=== PATIENT | female | born 1975 | race Caucasian/White ===

== ENCOUNTER 2019-07-08 13:17 | Emergency (ER) | payer OTHER, SELFPAY ==
[2019-07-08 13:23] VITALS: BP 163/90; PULSE 77; RESP 14; TEMP 36.8; O2SAT 98; BMI 40.5
--- NOTE | 2019-07-08 13:44 | ED.RN ---
URINE COLLECTED IN TRIAGE. COMPLETE UA AND CULTURE IN LAB. Evan BEJARANO RN [id number]
[2019-07-08] MEDS: Famotidine 20 MG Tablet 40 MG PO (14:22)
[2019-07-08] MEDS: predniSONE 20 MG Tablet 40 MG PO (14:22)
[2019-07-08] MEDS: DiphenhydrAMINE 25 MG Capsule 50 MG PO (14:22)
--- NOTE | 2019-07-08 15:33 | ED.DCSUM_ITS ---
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 She has never had this happen before. She had Cipro in the past that successfully treated a urine infection, so when she discussed a possible bladder infection with her doctor in the office a couple days ago, she was prescribed Cipro again. She has been having burning dysuria and frequency for about 1 week. No fevers, nausea, vomiting, low back pain. She denies any shortness of breath, tongue swelling, problems swallowing. No lightheadedness or near syncope. No hand or foot swelling, no rashes or itching. Prior similar symptoms: No - Past Medical History (1) HTN (hypertension) Status: Chronic Past Medical History - Allergies and Home Meds Allergies/Adverse Reactions: Allergies ciprofloxacin Allergy (Verified 07/08/19 14:13) Swelling lisinopril Allergy (Verified 07/08/19 14:13) Swelling Penicillins [PCN] Allergy (Verified 07/08/19 14:13) Hives Primary Care Physician: Rosina De La Vega MD [Primary Care Provider] - 3-5 Days Lives: With Family Smoking Status: Never smoker Drugs: None Review of Systems General: Denies: Chills, Fever, Sweats Eyes: Denies: Visual changes - bilaterally, Diplopia ENT: Reports: - - upper lip swelling. Denies: Rhinorrhea, Sore throat Cardiovascular: Denies: Chest pain, Palpitations Respiratory: Denies: Dyspnea, Cough, Dyspnea on exertion Gastrointestinal: Denies: Abdominal pain, Nausea, Vomiting, Diarrhea, Melena, Hematochezia Genitourinary: Reports: Dysuria, Frequency. Denies: Hematuria Musculoskeletal: Denies: Neck pain, Back pain, Extremity Pain Skin: Denies: Rash, Wounds Neurological: Denies: Headache, Weakness, Numbness Physical Exam Vital Signs/Narrative: Vital Signs Temp Pulse Resp BP Pulse Ox 07/08/19 13:23 98.2 F 77 14 163/90 H 98 Inital Vital Signs reviewed: Yes General: Well nourished, Well developed, No Acute Distress Head: Normocephalic, Atraumatic Eyes: Perrl, EOMI ENT: Moist mucous membranes, No rhinorrhea, - - Extremely edematous, nontender upper lip. No trismus. No stridor. Posterior oropharynx is normal-appearing and symmetric without any evidence of edema there or at the tongue. No sublingual edema. Neck: Supple, Nontender, No lymphadenopathy Cardiovascular: Regular rate, Regular rhythm, No murmurs Respiratory: No distress, CTA bilaterally, Chest nontender Back: Nontender, Normal Inspection Extremities: Nontender, No edema Skin: Normal color, No rash, No Trauma Neurological: Alert, Oriented x3, Cranial nerves II-XII grossly intact, Normal Strength, Normal Sensation Psychological: Normal affect, Normal Mood Diagnostic/Tx/Re-eval - Medical Decision Making Patient was given Benadryl, Pepcid, prednisone. She was observed in ER for 3 hours. On reexamination, her right upper lip angioedema is stable and has not worsened. She has no stridor, trouble breathing, trouble swallowing, or any other new symptoms, the exam is the same as when I saw her before. Given that she is not progressing or getting worse, I feel she is stable for discharge home. We discussed reasons to return to the ER. She is comfortable with that. In adjusting her medications -- I recommend discontinuing the ciprofloxacin in addition to her lisinopril, I think the Cipro is more likely the cause, however the involvement of her upper lip only and to such a significant degree I think also requires discontinuation of her SHEILA inhibitor. The plan is to replace these with losartan 25mg daily and a 3-day course of Bactrim and have her fo llow-up as an outpatient. Attempted to discussed with Dr. Jackson, covering for Dr. De La Vega today, mainly to ensure close outpt follow-up and verify appropriate dosing of ARB, but after 30 min we did not receive a call back and the patient wanted to leave. ED Disposition - Plan for ED Patient: Disposition: Home or Assisted Living Diagnosis: Angioedema of lips Instructions: ALLERGIC REACTION, Drug, ED Angioedema Prescriptions: Sulfamethoxazole/Trimethoprim [Bactrim Ds Tablet] 1 ea PO BID #6 tab Prescription Printed Losartan Potassium 25 mg PO DAILY #30 tab Prescription Printed predniSONE tablet 40 mg PO DAILY #6 tab Prescription Printed Referrals: Rosina De La Vega MD [Primary Care Provider] - 3-5 Days Additional Instructions: STOP your lisinopril and the ciprofloxacin.
[2019-07-08 16:30] VITALS: BP 135/82; PULSE 80; RESP 16; O2SAT 99
--- NOTE | 2019-07-08 16:30 | ED.RN ---
DISCHARGE INSTRUCTIONS GIVEN TO AND REVIEWED WITH PATIENT, PATIENT DENIES QUESTIONS OR CONCERNS AND VOICES UNDERSTANDING OF DISCHARGE INSTRUCTIONS. PT AMBULATES OUT OF ROOM WITHOUT DIFFICULTY.
== END 2019-07-08 16:31 | disposition home or self-care (01) ==
PROVIDERS: Emergency Provider Emergency Medicine; Family Provider Internal Medicine; PCP Internal Medicine
DX: T78.3XXA Angioneurotic edema, initial encounter (principal); N39.0 Urinary tract infection, site not specified; I10 Essential (primary) hypertension; Z79.899 Other long term (current) drug therapy; Z88.0 Allergy status to penicillin; Z88.8 Allergy status to other drugs, medicaments and biological substances
CPT/HCPCS: 99283

== ENCOUNTER 2020-12-20 13:02 | Emergency (ER) | payer OTHER, SELFPAY ==
[2020-12-20 13:03] VITALS: BP 172/106; PULSE 79; RESP 16; TEMP 35.9; O2SAT 98; BMI 40.3
--- NOTE | 2020-12-20 13:10 | RAD_ITS ---
STUDY: X-RAY - LEFT FOOT CLINICAL: Female, 45 years old. FELL YESTERDAY, PAIN AND SWELLING LATERAL FOOT TECHNIQUE: 3 view(s) of the foot. COMPARISON: None. FINDINGS: Normal talus, calcaneus, and tarsal bones. Normal visualized subtalar, talonavicular, calcaneocuboid, tarsal and tarsometatarsal articulations. Normal metatarsi. Normal metatarsophalangeal joint of the great toe. Normal tibial and fibular sesamoid bones. Normal interphalangeal joint of the great toe. Normal phalanges of the great toe. Normal second through fifth metatarsophalangeal joints. Normal interphalangeal joints and phalanges of the lesser toes. The soft tissue structures are unremarkable. RAD/Foot min 3 Views IMPRESSION: Normal x-ray examination of the foot. Electronically Signed: Сергей Acevedo MD at 14:32 EST , Service support ,
--- NOTE | 2020-12-20 13:11 | ED.VIS.GEN ---
History of Present Illness Chief Complaint: Lower Extremity Injury Informant: Patient Onset: Yesterday Context: Sudden Onset Timing: Continuous Quality: Pain lateral left foot Location: Over the fourth fifth metatarsal proximally Current Severity: Mild Maximum Severity: Moderate Worsened by: Walking Relieved by: Elevation Associated Symptoms: None Narrative: Is a 45-year-old woman who presents with injury to her left foot. She localized the pain lateral side of the left foot over the fourth fifth metatarsal. There is soft tissue swelling noted. She denies any other injury. Prior similar symptoms: No Recent Illness/Hospitalization: No - Past Medical History (1) HTN (hypertension) Status: Chronic Past Medical History - Allergies and Home Meds Allergies/Adverse Reactions: Allergies ciprofloxacin Allergy (Verified 12/20/20 13:02) Swelling lisinopril Allergy (Verified 12/20/20 13:02) Swelling Penicillins [PCN] Allergy (Verified 12/20/20 13:02) Hives Primary Care Physician: Rosina De La Vega MD [Primary Care Provider] - Prior records reviewed: Yes Surgical History: noncontributory Lives: Spouse/ Significant Other Smoking Status: Never smoker Drugs: None Review of Systems General: Denies: Chills, Fever, Malaise, Subjective Gastrointestinal: Denies: Nausea, Vomiting Musculoskeletal: Reports: Swelling, Extremity Pain. Denies: Myalgias, Arthralgias, Neck pain, Back pain Neurological: Denies: Weakness, Parasthesia, Numbness Hematologic: Denies: Easy bruising, Easy bleeding Physical Exam Vital Signs/Narrative: Vital Signs Temp Pulse Resp BP Pulse Ox 12/20/20 13:03 96.6 F L 79 16 172/106 H 98 Inital Vital Signs reviewed: Yes General: Well nourished, Well developed, Obese, No Acute Distress Head: Normocephalic, Atraumatic Eyes: Perrl, EOMI Cardiovascular: Regular rate, Regular rhythm Respiratory: No distress Extremities: No edema, Tenderness - Pain outpatient over the proximal fourth and fifth metatarsal. There is soft tissue swelling noted., - - DP and TP PT pulse are palpable. There is no laxity with drawer testing. There is no pain ovation over the lateral or medial malleolus.. Negative for: Nontender Skin: Normal color, No rash, Trauma. Negative for: Cyanosis, Diaphoresis, Jaundice Neurological: Alert, Oriented x3, Cranial nerves II-XII grossly intact, Normal Strength, Normal Sensation Psychological: Normal affect Diagnostic/Tx/Re-eval Chest X-Ray - ED: Read by ED Physician - Three-view x-ray of the left foot was obtained interpreted by me as negative. There is no evidence of fracture, subluxation or dislocation. Patient's physical and history is consistent with a foot strain of the peroneal brevis tendon. 12/20/20 13:10 Foot min 3 Views [RAD] Stat - Medical Decision Making Patient was offered pain medicine which she declined since she took [id number] meds prior to arrival. Concerned that she has a fracture of the proximal fifth metatarsal. X-ray was obtained to rule out fracture versus strain/sprain of the peroneal brevis tendon ED Disposition - Plan for ED Patient: Disposition: Home or Assisted Living Diagnosis: Other sprain of left foot, initial encounter Instructions: ED Foot Sprain Referrals: Rosina De La Vega MD [Primary Care Provider] - 10-14 Days if not better Additional Instructions: 1. Apply ice 20 to 30 minutes per application 6-8 times a day. 2. Take either 4 Advil every 8 hours for the next 3 to 4 days or 2 Advil every 12 hours for the next 3 to 4 days.
[2020-12-20 14:49] VITALS: BP 154/94
== END 2020-12-20 14:50 | disposition home or self-care (01) ==
LOC: ED 14:40
PROVIDERS: Emergency Provider Emergency Medicine; PCP Internal Medicine
DX: S93.602A Unspecified sprain of left foot, initial encounter (principal); X58.XXXA Exposure to other specified factors, initial encounter; Y92.9 Unspecified place or not applicable; Y99.9 Unspecified external cause status; I10 Essential (primary) hypertension; Z88.0 Allergy status to penicillin; Z88.8 Allergy status to other drugs, medicaments and biological substances
CPT/HCPCS: 73630; 99282